=== PATIENT | male | born 1990 ===

== ENCOUNTER 2022-06-27 20:28 | Inpatient (IN) | payer MEDICAID ==
[2022-06-27] MEDS ORDERED: HALOPERIDOL LACTATE 5 MG/ML 1 ML VIAL IM PRN (21:01)
[2022-06-27] MEDS ORDERED: hydrOXYzine HCL 50 MG/ML 1 ML VIAL IM PRN (21:01)
[2022-06-27] MEDS ORDERED: LORazepam 2 MG/ML INJ IM PRN (21:01)
[2022-06-27] MEDS ORDERED: MAG HYDROX/AL HYDROX/SIMETH 30 ML CUP PO PRN (21:10)
[2022-06-27] MEDS ORDERED: MAGNESIUM HYDROXIDE 2,400 MG/10 ML CUP PO PRN (21:10)
[2022-06-28] MEDS: hydrOXYzine pamoate 25 MG CAP PO PRN ×2 (04:19→19:57)
[2022-06-28] MEDS: haloperidoL 5 MG TAB PO PRN ×2 (04:20→21:45)
--- NOTE | 2022-06-28 04:58 | P.PN ---
Progress Note - Text Progress Note Date: 06/28/22 patient refused evaluation
[2022-06-28] MEDS ORDERED: NICOTINE 14MG/24HR PATCH TRANSDERM SCH (09:00)
[2022-06-28] MEDS ORDERED: ARIPiprazole 10 MG TAB PO SCH (09:00)
[2022-06-28] MEDS: CHLORTHALIDONE 25 MG TAB PO SCH (09:12)
[2022-06-28] MEDS: lisinopriL 20 MG TAB PO SCH (09:12)
[2022-06-28] MEDS: LEVOTHYROXINE 100 MCG TAB PO SCH (09:13)
[2022-06-28] MEDS: FAMOTIDINE 20 MG TAB PO SCH (09:13)
[2022-06-28] MEDS: DIVALPROEX ER 500 MG TAB.ER.24H PO SCH ×2 (09:15→21:26)
[2022-06-28] MEDS ORDERED: NICOTINE GUM (POLACRILEX) 2 MG GUM BUCCAL PRN (09:22)
--- NOTE | 2022-06-28 13:30 | P.HP ---
Psychiatric H&P - . H&P Date: 06/28/22 History & Physical: Allergies Allergy/AdvReac Type Severity Reaction Status Date / Time No Known Allergies Allergy Verified 06/27/22 21:01 Vital Signs Temp 98 F 06/27/22 22:34 Pulse 105 H 06/27/22 22:34 Resp 18 06/27/22 22:34 BP 127/88 06/27/22 22:34 Pulse Ox 94 L 06/27/22 22:34 FiO2 Intake & Output 06/27/22 06/28/22 06/28/22 18:59 06:59 18:59 Weight 158.049 kg Laboratory Last Values Valproic Acid 32.0 ug/mL 06/28/22 11:44 06/28/22 13:22 IDENTIFYING DATA: Patient is a 32-year-old -Chinese male currently lives with his mother HPI: Patient presented to the hospital as a transfer from [facility] on a petition and certificate. Petition was held up by patient's mother who states the patient has been rambling, aggressive and not caring for himself at home. Patient was seen wandering the hallways was agreeable to speak to read in the office today. Patient appeared to have fairly poor insight and judgment and was fairly focused on discharge today. He was tangential and rambling at times and had disorganized speech. He was denying what had been written on the petition and did not see a need for him to be in the hospital. He was also minimizing his mental illness and need for treatment. He claims that "I am fine but I need your help". He claims that she was requesting discharge several times today. He states that he has nowhere to go, he was fairly vague and evasive. He states that his mother told him that "I need to go into the doctor". However did not explain what had occurred at home. Patient was talking under his breath several times, he states that he is not paranoid claims that his sleep and appetite are fair. He denies any depression this time however does state that he is feeling anxious. Patient denies any suicidal or homicidal ideations intent or plan. At this time patient denies any auditory or visual hallucinations. Patient denies any flight of ideas racing thoughts and increased in goal directed behavior. Patient admits to using cigarettes daily, alcohol occasionally and marijuana frequently. Denies any other recreational drug use. PAST PSYCHIATRIC HISTORY: Patient states that [he does not know what his psychiatric illnesses]. Patient is currently on Depakote twice a day, Abilify and also taking trazodone at nighttime. Patient states that he was previously admitted to [facility] outside of [place] and also [facility] the [facility], claims that he spent 4 years there starting in 2009. He states that it was because a "CSC" [Patient denies any psychiatric outpatient follow-up.] [Patient denies any history of suicide attempts in the past.] PMH: obesity, hypertension, gerd, hypothyroidism ALLERGIES: as per EMR CHEMICAL DEPENDENCY HISTORY: as per HPI FAMILY PSYCHIATRIC/SUBSTANCE USE HISTORY: [denies] SOCIAL HISTORY: Patient was born and raised in [[facility]. He claims that he completed high school and did special education courses. He states there is currently unemployed, he lives with his mother. He claims that he served time for a CSC charge]. MENTAL STATUS EXAM: General Appearance: Patient appears to be [obese,] stated age is alert, [directable, yet focused on discharge]. Impulsive and irritable at times. Patient appears to have [poor] hygiene and grooming. Behavior: Patient is seated without any agitated behavior. [] Irritable. Demanding. Speech: Patient's speech is [fluent and nonpressured.] [place]. Mood/Affect: Patient reports their mood is ["a bit anxious", affect is congruent and constricted. Suicidality/Homicidality: Patient denies having any homicidal ideation intent or plan. [Denies any suicidal ideations intent or plan] Perceptions: Patient denies any visual hallucinations [and denies any auditory hallucinations] Though content/process: [There is no evidence of any delusional thought content and thought process is linear and goal-directed.] Focused on discharge. Poor insight. Memory and concentration: AOX3, grossly intact for the purposes of this session. Can spell "WORLD" backwards Judgment and insight: [poor] STRENGTHS/WEAKNESSES: strength is that patient is [resilient]. Weakness is that patient [has poor judgment/insight and is impulsive] INTELLECT: [average] IMPRESSIONS: []Schizophrenia Cannabis use disorder Nicotine dependence PLAN: -Patient is admitted under [involuntary] status to MHU for stabilization of psychiatric symptoms and safety. Patient has [not] signed [adult voluntary form and] [medication consent] and is placed in patient's chart. [A second certification was completed and along with petition will be filed for court.] -Medications : Will start patient on [Depakote 500 mg twice a day for mood stabilization/aggression, increase Abilify to 15 mg daily for mood stabilization /psychosis, trazodone 100 mg qhs for insomnia] -vistaril, Ativan [and Haldol] PRN for agitation/aggression [-Patient was counselled on substance abuse and desired to cut back on use] -Patient was informed of the risks, benefits and side effects of the medication -Internal Medicine consult to perform medical evaluation and physical. -NRT - [nicotine gum] -SW on board for discharge planning. Encourage patient to participate in groups to work on coping skills. Will await deferral and court date.
[2022-06-28] MEDS: ACETAMINOPHEN TAB 325 MG TAB PO PRN (19:59)
[2022-06-28] MEDS ORDERED: DIVALPROEX ER 250 MG TAB.ER.24H PO SCH (21:00)
[2022-06-28] MEDS ORDERED: DIVALPROEX ER 500 MG TAB.ER.24H PO SCH (21:00)
[2022-06-28] MEDS: ATORVASTATIN 20 MG TAB PO SCH (21:26)
[2022-06-28] MEDS: DOXAZOSIN 4 MG TAB PO SCH (21:27)
[2022-06-28] MEDS: DILTIAZEM ORAL 30 MG TAB PO SCH (21:27)
[2022-06-28] MEDS: traZODone HCL 100 MG TAB PO SCH (21:27)
[2022-06-29] MEDS: hydrOXYzine pamoate 25 MG CAP PO PRN ×2 (02:36→08:39)
[2022-06-29] MEDS: LEVOTHYROXINE 100 MCG TAB PO SCH (06:29)
[2022-06-29] MEDS: ARIPiprazole 15 MG TAB PO SCH (08:36)
[2022-06-29] MEDS: DILTIAZEM ORAL 30 MG TAB PO SCH ×3 (08:36→21:31)
[2022-06-29] MEDS: FAMOTIDINE 20 MG TAB PO SCH (08:36)
[2022-06-29] MEDS: CHLORTHALIDONE 25 MG TAB PO SCH (08:36)
[2022-06-29] MEDS: lisinopriL 20 MG TAB PO SCH (08:36)
[2022-06-29] MEDS: haloperidoL 5 MG TAB PO PRN (08:39)
[2022-06-29] MEDS ORDERED: DIVALPROEX ER 500 MG TAB.ER.24H PO SCH (09:00)
--- NOTE | 2022-06-29 10:43 | P.PN ---
Progress Note - Text Progress Note Date: 06/29/22 Interval history: Patient was seen today for psychiatric follow up. Patient was seen laying on his bed today and was agreeable to speak to radio script writer briefly. He states that he is feeling "a bit tired" and states that he slept about 6 hours last night. He continues to be fairly focused on discharge has limited insight and judgment. He claims that "my medications are all messed up" however did not indicate if she is having side effects or any other complaints. He appeared to be more focused on sleeping at this time. He states that he will try to go to groups later on today. He appears to be less impulsive and less irritable today. Claims have a fair appetite. He asked that his "mom is here yet". He is denying any auditory or visual hallucinations. Denying any suicidal or homicidal ideations intent or plan. Mental status exam: General Appearance: Patient appears to be obese, stated age is alert, directable, yet focused on discharge. Impulsive, improving mildly. Patient appears to have poor hygiene and grooming. Behavior: Patient is seated without any agitated behavior. Less Irritable. Focused on discharge. Speech: Patient's speech is fluent and nonpressured. [place]. Mood/Affect: Patient reports their mood is ["ok i guess", affect is congruent and constricted. Suicidality/Homicidality: Patient denies having any homicidal ideation intent or plan. Denies any suicidal ideations intent or plan Perceptions: Patient denies any visual hallucinations and denies any auditory hallucinations Though content/process: There is no evidence of any delusional thought content and thought process is linear and goal-directed. Focused on discharge. Poor insight. Memory and concentration: AOX3, grossly intact for the purposes of this session Judgment and insight: poor, improving mildly IMPRESSIONS: Schizophrenia Cannabis use disorder Nicotine dependence PLAN: -Patient is admitted under involuntary status to MHU for stabilization of psychiatric symptoms and safety. Patient has not signed adult voluntary form and medication consent and is placed in patient's chart. -Medications : change Depakote 1000 mg qhs for mood stabilization/aggression, continue Abilify 15 mg daily for mood stabilization/psychosis, trazodone 100 mg qhs for insomnia -vistaril, Ativan and Haldol PRN for agitation/aggression -NRT - nicotine gum -SW on board for discharge planning. Encourage patient to participate in groups to work on coping skills. Court date set for 07/03, currently awaiting deferral with erisa attorney. Patient's mother states that patient has a outpatient appointment at [facility] on July 03.
[2022-06-29] MEDS: ACETAMINOPHEN TAB 325 MG TAB PO PRN (14:25)
[2022-06-29] MEDS: traZODone HCL 100 MG TAB PO SCH (21:31)
[2022-06-29] MEDS: DIVALPROEX ER 500 MG TAB.ER.24H PO SCH (21:31)
[2022-06-29] MEDS: ATORVASTATIN 20 MG TAB PO SCH (21:31)
[2022-06-29] MEDS: DOXAZOSIN 4 MG TAB PO SCH (21:31)
[2022-06-30] MEDS: LEVOTHYROXINE 100 MCG TAB PO SCH (06:35)
[2022-06-30] MEDS: DILTIAZEM ORAL 30 MG TAB PO SCH ×3 (08:52→19:56)
[2022-06-30] MEDS: CHLORTHALIDONE 25 MG TAB PO SCH (08:52)
[2022-06-30] MEDS: lisinopriL 20 MG TAB PO SCH (08:52)
[2022-06-30] MEDS: FAMOTIDINE 20 MG TAB PO SCH (08:52)
[2022-06-30] MEDS: ARIPiprazole 15 MG TAB PO SCH (08:52)
[2022-06-30] MEDS: haloperidoL 5 MG TAB PO PRN ×2 (09:02→16:06)
--- NOTE | 2022-06-30 11:31 | P.PN ---
Progress Note - Text Progress Note Date: 06/30/22 The patient was seen for a follow-up The patient was standing at the vendor facing out and was talking to himself Patient turnaround when his name was called but denies spontaneous or questions Patient refused to get involved in any conversation but continues to have his own conversation with himself Mental status exam: General Appearance: Patient appears to be obese, stated age is alert, unable to direct . Patient appears to have poor hygiene and grooming. Behavior: Patient standing the window without any agitated behavior. Less Irritable. Speech: Patient's speech is garbled and difficult to stay Mood/Affect: Unable to assess due to patient's uncooperativeness Suicidality/Homicidality: Unable to assess Perceptions: Unable to assess Though content/process: Appears to be delusional and preoccupied Memory and concentration: AOX3, grossly intact for the purposes of this session Judgment and insight: poor, IMPRESSIONS: Schizophrenia Cannabis use disorder Nicotine dependence PLAN: -Patient is admitted under involuntary status to MHU for stabilization of psychiatric symptoms and safety. Patient has not signed adult voluntary form and medication consent and is placed in patient's chart. -Medications : change Depakote 1000 mg qhs for mood stabilization/aggression, continue Abilify 15 mg daily for mood stabilization/psychosis, trazodone 100 mg qhs for insomnia -vistaril, Ativan and Haldol PRN for agitation/aggression -NRT - nicotine gum - on board for discharge planning. Encourage patient to participate in groups to work on coping skills. Court date set for 07/03, currently awaiting deferral with corporate associate attorney. Patient's mother states that patient has a outpatient aftab ointment at [facility] on July 03. Serjio Barnes M.D.
[2022-06-30] MEDS: ACETAMINOPHEN TAB 325 MG TAB PO PRN (12:43)
[2022-06-30] MEDS: hydrOXYzine pamoate 25 MG CAP PO PRN (13:35)
[2022-06-30] MEDS: DIVALPROEX ER 500 MG TAB.ER.24H PO SCH (19:55)
[2022-06-30] MEDS: ATORVASTATIN 20 MG TAB PO SCH (19:56)
[2022-06-30] MEDS: DOXAZOSIN 4 MG TAB PO SCH (19:56)
[2022-06-30] MEDS: traZODone HCL 100 MG TAB PO SCH (19:56)
[2022-07-01] MEDS: haloperidoL 5 MG TAB PO PRN ×2 (02:45→21:35)
[2022-07-01] MEDS: hydrOXYzine pamoate 25 MG CAP PO PRN ×3 (02:45→21:35)
[2022-07-01] MEDS: ACETAMINOPHEN TAB 325 MG TAB PO PRN ×2 (05:30→15:40)
[2022-07-01] MEDS: LEVOTHYROXINE 100 MCG TAB PO SCH (05:37)
[2022-07-01] MEDS: CHLORTHALIDONE 25 MG TAB PO SCH (09:42)
[2022-07-01] MEDS: DILTIAZEM ORAL 30 MG TAB PO SCH ×3 (09:43→21:35)
[2022-07-01] MEDS: FAMOTIDINE 20 MG TAB PO SCH (09:44)
[2022-07-01] MEDS: lisinopriL 20 MG TAB PO SCH (09:44)
[2022-07-01] MEDS: ARIPiprazole 15 MG TAB PO SCH (09:44)
--- NOTE | 2022-07-01 09:49 | P.PN ---
Progress Note - Text Progress Note Date: 07/01/22 The patient was tried to be seen for follow-up Patient however refused to acknowledge this ticket writer Remains preoccupied Patient refused to get involved in any conversation but continues to have his own conversation with himself Mental status exam: General Appearance: Patient appears to be obese, stated age is alert, unable to direct . Patient appears to have poor hygiene and grooming. Behavior: Patient standing the window without any agitated behavior. Less Irritable. Speech: Patient's speech is garbled and difficult to understand Mood/Affect: Unable to assess due to patient's uncooperativeness Suicidality/Homicidality: Unable to assess Perceptions: Unable to assess Though content/process: Appears to be delusional and preoccupied Memory and concentration: AOX3, grossly intact for the purposes of this session Judgment and insight: poor, IMPRESSIONS: Schizophrenia Cannabis use disorder Nicotine dependence PLAN: -Patient is admitted under involuntary status to MHU for stabilization of psychiatric symptoms and safety. Patient has not signed adult voluntary form and medication consent and is placed in patient's chart. -Medications : change Depakote 1000 mg qhs for mood stabilization/aggression, continue Abilify 15 mg daily for mood stabilization/psychosis, trazodone 100 mg qhs for insomnia -vistaril, Ativan and Haldol PRN for agitation/aggression -NRT - nicotine gum - on board for discharge planning. Encourage patient to participate in groups to work on coping skills. Court date set for 07/03, currently awaiting deferral with tool programmer. Patient's mother states that patient has a outpatient appointment at [facility] on July 03. Serjio Barnes M.D.
[2022-07-01] MEDS: traZODone HCL 100 MG TAB PO SCH (21:34)
[2022-07-01] MEDS: DIVALPROEX ER 500 MG TAB.ER.24H PO SCH (21:34)
[2022-07-01] MEDS: ATORVASTATIN 20 MG TAB PO SCH (21:34)
[2022-07-01] MEDS: DOXAZOSIN 4 MG TAB PO SCH (21:35)
[2022-07-02] MEDS: hydrOXYzine pamoate 25 MG CAP PO PRN ×2 (02:47→11:06)
[2022-07-02] MEDS: LEVOTHYROXINE 100 MCG TAB PO SCH (06:44)
[2022-07-02] MEDS: DILTIAZEM ORAL 30 MG TAB PO SCH ×3 (09:18→21:12)
[2022-07-02] MEDS: ARIPiprazole 15 MG TAB PO SCH (09:18)
[2022-07-02] MEDS: lisinopriL 20 MG TAB PO SCH (09:18)
[2022-07-02] MEDS: CHLORTHALIDONE 25 MG TAB PO SCH (09:19)
[2022-07-02] MEDS: FAMOTIDINE 20 MG TAB PO SCH (09:19)
--- NOTE | 2022-07-02 11:40 | P.PN ---
Progress Note - Text Progress Note Date: 07/02/22 Interval history: Patient was seen today for psychiatric follow up. Patient was seen laying on his bed today. He was sleeping and was agreeable to speak to scientific technical writer when he woke up. She appeared to have improvement in his impulsivity however over the weekend patient was bizarre, inappropriate and agitated at times. Patient required Haldol prn yesterday. Patient claims that he is not sleeping well and has been noted to be talking oneself and responding to internal stimuli at times. Patient claims that he feels "all right" and appears to have very poor insight and judgment. He claims that he slept fairly last night. He states that he has a fair appetite. He continues to be focused on being discharged to his mother. He has not been going to many groups. [place] on discharge. He appears to be less impulsive and less irritable today. Claims have a fair appetite. We spoke more about the court process. He is denying any auditory or visual hallucinations. Denying any suicidal or homicidal ideations intent or plan. Mental status exam: General Appearance: Patient appears to be obese, stated age is alert, directable, yet focused on discharge. Impulsive, bizarre at times. Patient appears to have poor hygiene and grooming. Behavior: Patient is seated without any agitated behavior. Bizarre. Focused on discharge. Speech: Patient's speech is fluent and nonpressured. [place]. Mood/Affect: Patient reports their mood is ["ok", affect is congruent and constricted. Suicidality/Homicidality: Patient denies having any homicidal ideation intent or plan. Denies any suicidal ideations intent or plan Perceptions: Patient denies any visual hallucinations and denies any auditory hallucinations Though content/process: There is no evidence of any delusional thought content and thought process is linear and goal-directed. Focused on discharge. Poor insight. Memory and concentration: AOX3, grossly intact for the purposes of this session Judgment and insight: poor IMPRESSIONS: Schizophrenia Cannabis use disorder Nicotine dependence PLAN: -Patient is admitted under involuntary status to MHU for stabilization of psychiatric symptoms and safety. Patient has not signed adult voluntary form and medication consent and is placed in patient's chart. -Medications : Depakote 1000 mg qhs for mood stabilization/aggression, discontinue Abilify and replace with paliperidone by mouth 3 mg twice a day for mood stabilization/psychosis. Plan will be to transition patient to long-acting injection to ensure compliance. trazodone 100 mg qhs for insomnia -vistaril, Ativan and Haldol PRN for agitation/aggression -NRT - nicotine gum -SW on board for discharge planning. Encourage patient to participate in groups to work on coping skills. Court date set for 07/03, currently awaiting deferral with chief communications officer. Patient is apparently not allowed back at mother's house and will be homeless. poss d/c in 2-3 days.
[2022-07-02] MEDS: PALIPERIDONE 3 MG TAB.ER.24 PO SCH ×2 (13:09→21:12)
[2022-07-02] MEDS: ATORVASTATIN 20 MG TAB PO SCH (21:11)
[2022-07-02] MEDS: DIVALPROEX ER 500 MG TAB.ER.24H PO SCH (21:11)
[2022-07-02] MEDS: traZODone HCL 100 MG TAB PO SCH (21:12)
[2022-07-02] MEDS: DOXAZOSIN 4 MG TAB PO SCH (21:12)
[2022-07-03] MEDS: haloperidoL 5 MG TAB PO PRN ×2 (00:12→20:59)
--- NOTE | 2022-07-03 01:46 | P.CONS ---
History of Present Illness - Reason for Consult Consult date: 07/03/22 - History of Present Illness The patient is a 32-year-old male was transferred from a clinical with the patient was brought by his mother due to strange and aggressive behavior. The patient was seen in the mental health unit. The patient reported that he feels significantly better and that he had no active complaints. He reports living with his mother in [place]. Smokes 10 cigarettes a day. Denied illicit substance use or alcohol use. Denies any active complaints at the time of interview. Denied experiencing chest discomfort, shortness of breath fever, chills, cough, nausea, vomiting, abdominal pain, diarrhea. Review of systems: Pertinent positives and negatives as discussed in HPI, a complete review of systems was performed and all other systems are negative. Physical examination: General: non toxic, no distress, appears older than stated age, morbidly obese Derm: no unusual rashes/lesions, no unusual ecchymoses, warm, dry Head: atraumatic, normocephalic, symmetric Eyes: EOMI, no lid lag, anicteric sclera ENT: Nose and ears atraumatic, no thrush, no pharyngeal erythema Neck: trachea midline, supple Mouth: no lip lesion, mucus membranes moist Cardiovascular: S1S2 reg, no murmur, no edema Lungs: CTA bilateral, no rhonchi, no rales , no accessory muscle use Abdominal: soft, nontender to palpation, no guarding Ext: no gross muscle atrophy, no contractures, Neuro: No gross focal neuro deficits noted Psych: Alert, oriented, appropriate affect Assessment: Prediabetes Psychosis Imaging: None performed Data Review: Laboratory evaluation reviewed with hemoglobin 6.4, TSH 2.05 Plan: Discussed with patient importance of weight loss and dietary changes. Advised patient to follow-up with his PCP following discharge Defer management of psychosis to primary psychiatry service Thank you for allowing us to participate in the care of this patient. We will follow peripherally. Do not hesitate to contact us with questions. Someone can be reached from the [facility] hospitalist group at all hours of the day at [phone]. Past Medical History History of Any Multi-Drug Resistant Organisms: None Reported Additional Past Surgical History / Comment(s): gastric bypass Past Anesthesia/Blood Transfusion Reactions: No Reported Reaction Past Psychological History: Unable to Obtain Smoking Status: Current every day smoker, Vaper - Past Family History Mother Family Medical History: Diabetes Mellitus Medications and Allergies Allergies Allergy/AdvReac Type Severity Reaction Status Date / Time No Known Allergies Allergy Verified 06/27/22 21:01 Physical Exam Vitals: Vital Signs Temp Pulse Resp BP Pulse Ox 07/03/22 01:06 97.6 F 114 H 18 133/86 96 07/02/22 02:48 97.8 F 118 H 16 139/78 97
[2022-07-03] MEDS: ACETAMINOPHEN TAB 325 MG TAB PO PRN ×2 (02:05→15:29)
[2022-07-03] MEDS: DILTIAZEM ORAL 30 MG TAB PO SCH ×3 (07:51→20:36)
[2022-07-03] MEDS: PALIPERIDONE 3 MG TAB.ER.24 PO SCH (07:52)
[2022-07-03] MEDS: CHLORTHALIDONE 25 MG TAB PO SCH (07:52)
[2022-07-03] MEDS: LEVOTHYROXINE 100 MCG TAB PO SCH (07:53)
[2022-07-03] MEDS: lisinopriL 20 MG TAB PO SCH (07:53)
[2022-07-03] MEDS: FAMOTIDINE 20 MG TAB PO SCH (07:53)
--- NOTE | 2022-07-03 10:31 | P.PN ---
Progress Note - Text Progress Note Date: 07/03/22 Interval history: Patient was seen today for psychiatric follow up. patient was fairly persistent in speakign with fha underwriter today. he has a foul body odor today. he was fairlyu directable and attempted to answer questions. he states that he is feeling better today however continues to focus on going to his mothers house. he conitnues to display poor/superficial insight and judgment. Patient required Haldol prn earlier this morning and patient stated that "I dont know she just wanted to give it to me". appears to have very poor insight and judgment. He states that he has a fair appetite. He appears to be less impulsive and less irritable today. Claims have a fair appetite. We spoke more about the court process. He is denying any auditory or visual hallucinations. Denying any suicidal or homicidal ideations intent or plan. Mental status exam: General Appearance: Patient appears to be obese, stated age is alert, directable, yet focused on discharge. Impulsive, bizarre at times. Patient appears to have poor hygiene and grooming. Behavior: Patient is seated without any agitated behavior. Bizarre. Focused on discharge. Speech: Patient's speech is fluent and nonpressured. [place]. Mood/Affect: Patient reports their mood is ["fine now", affect is congruent and constricted. Suicidality/Homicidality: Patient denies having any homicidal ideation intent or plan. Denies any suicidal ideations intent or plan Perceptions: Patient denies any visual hallucinations and denies any auditory hallucinations Though content/process: There is no evidence of any delusional thought content and thought process is linear. Focused on discharge. Poor insight. Memory and concentration: AOX3, grossly intact for the purposes of this session Judgment and insight: poor IMPRESSIONS: Schizophrenia Cannabis use disorder Nicotine dependence PLAN: -Patient is admitted under involuntary status to MHU for stabilization of psychiatric symptoms and safety. Patient has not signed adult voluntary form and medication consent and is placed in patient's chart. -Medications : Depakote 1000 mg qhs for mood stabilization/aggression, increase paliperidone by mouth 3 mg + 6 mg qhs for mood stabilization/psychosis. Plan will be to transition patient to long-acting injection to ensure compliance. increase trazodone 150 mg qhs for insomnia -vistaril, Ativan and Haldol PRN for agitation/aggression -NRT - nicotine gum -SW on board for discharge planning. Encourage patient to participate in groups to work on coping skills. Court date set for 07/04, he did not defer. Patient is apparently not allowed back at mother's house and will be homeless. poss d/c in 2-3 days once patient is transitioned onto WOOD.
[2022-07-03] MEDS: DIVALPROEX ER 500 MG TAB.ER.24H PO SCH (20:35)
[2022-07-03] MEDS: ATORVASTATIN 20 MG TAB PO SCH (20:35)
[2022-07-03] MEDS: DOXAZOSIN 4 MG TAB PO SCH (20:35)
[2022-07-03] MEDS: PALIPERIDONE 6 MG TAB.ER.24 PO SCH (20:35)
[2022-07-03] MEDS: hydrOXYzine pamoate 25 MG CAP PO PRN (20:59)
[2022-07-03] MEDS ORDERED: traZODone HCL 50 MG TAB PO SCH (21:00)
[2022-07-04] MEDS: LEVOTHYROXINE 100 MCG TAB PO SCH (05:36)
[2022-07-04] MEDS: FAMOTIDINE 20 MG TAB PO SCH (08:39)
[2022-07-04] MEDS: lisinopriL 20 MG TAB PO SCH (08:39)
[2022-07-04] MEDS: DILTIAZEM ORAL 30 MG TAB PO SCH ×3 (08:39→21:07)
[2022-07-04] MEDS: PALIPERIDONE 3 MG TAB.ER.24 PO SCH (08:39)
[2022-07-04] MEDS: CHLORTHALIDONE 25 MG TAB PO SCH (08:39)
[2022-07-04] MEDS ORDERED: PALIPERIDONE IM 234 MG/1.5 ML SYG IM STA (09:33)
--- NOTE | 2022-07-04 11:26 | P.PN ---
Progress Note - Text Progress Note Date: 07/04/22 Interval history: Patient was seen today for psychiatric follow up. Patient again was fairly pe rsistent and speaking with typewriter repairer early this morning. He appears to have mild improvement in his hygiene and grooming. He appears to be more appropriate and cooperative today during interview. He states that he is doing "alright" continues to be fairly concrete. He was fairly focused on discharge. We spoke about the long-acting injection which patient is agreeable to take today. He continues to believe that he will be going to his mother's house and states that his mother is okay with it. daycare worker will be calling her today to see if that a possibility.appears to have chronically poor however improving insight and judgment. He states that he has a fair appetite. He appears to be less impulsive. Claims have a fair appetite. We spoke more about the court process. He is denying any auditory or visual hallucinations. Denying any suicidal or homicidal ideations intent or plan. Claims that he slept on and off last night. Mental status exam: General Appearance: Patient appears to be obese, stated age is alert, directable, yet focused on discharge. Impulsive, bizarre at times. Patient appears to have poor hygiene and grooming. Behavior: Patient is seated without any agitated behavior. Bizarre. Focused on discharge. Speech: Patient's speech is fluent and nonpressured. [place]. Mood/Affect: Patient reports their mood is ["fine now", affect is congruent and constricted. Suicidality/Homicidality: Patient denies having any homicidal ideation intent or plan. Denies any suicidal ideations intent or plan Perceptions: Patient denies any visual hallucinations and denies any auditory hallucinations Though content/process: There is no evidence of any delusional thought content and thought process is linear. Focused on discharge. Poor insight. Memory and concentration: AOX3, grossly intact for the purposes of this session Judgment and insight: poor IMPRESSIONS: Schizophrenia Cannabis use disorder Nicotine dependence PLAN: -Patient is admitted under involuntary status to MHU for stabilization of psychiatric symptoms and safety. Patient has not signed adult voluntary form and medication consent and is placed in patient's chart. -Medications : Depakote 1000 mg qhs for mood stabilization/aggression, continue paliperidone by mouth 3 mg + 6 mg qhs for mood stabilization/psychosis. Plan to give long-acting injection to ensure compliance today, 234 mg IM invega sustenna. increase trazodone 200 mg qhs for insomnia -vistaril, Ativan and Haldol PRN for agitation/aggression -NRT - nicotine gum -SW on board for discharge planning. Encourage patient to participate in groups to work on coping skills. Court date set for 07/04, patient apparently has deferred with gifted teacher now. poss d/c tomorrow after transition onto WOOD, SW to speak with mother to see if he can live there vs custodial with [facility] follow up.
[2022-07-04] MEDS: ACETAMINOPHEN TAB 325 MG TAB PO PRN ×3 (13:03→21:10)
[2022-07-04] MEDS ORDERED: traZODone HCL 100 MG TAB PO SCH (21:00)
[2022-07-04] MEDS: PALIPERIDONE 6 MG TAB.ER.24 PO SCH (21:07)
[2022-07-04] MEDS: DIVALPROEX ER 500 MG TAB.ER.24H PO SCH (21:07)
[2022-07-04] MEDS: DOXAZOSIN 4 MG TAB PO SCH (21:07)
[2022-07-04] MEDS: ATORVASTATIN 20 MG TAB PO SCH (21:08)
[2022-07-04] MEDS: hydrOXYzine pamoate 25 MG CAP PO PRN (22:38)
[2022-07-05] MEDS: LEVOTHYROXINE 100 MCG TAB PO SCH (04:26)
[2022-07-05 07:11] VITALS: BP 124/83; PULSE 114; RESP 20; TEMP 97.7
[2022-07-05] MEDS: FAMOTIDINE 20 MG TAB PO SCH (09:23)
[2022-07-05] MEDS: lisinopriL 20 MG TAB PO SCH (09:23)
[2022-07-05] MEDS: PALIPERIDONE 3 MG TAB.ER.24 PO SCH (09:23)
[2022-07-05] MEDS: DILTIAZEM ORAL 30 MG TAB PO SCH (09:23)
[2022-07-05] MEDS: DOXAZOSIN 4 MG TAB PO SCH (09:23)
[2022-07-05] MEDS: CHLORTHALIDONE 25 MG TAB PO SCH (09:23)
--- NOTE | 2022-07-05 10:05 | P.DS ---
Providers Date of admission: 06/27/22 21:58 Expected date of discharge: 07/05/22 Attending physician: Girish Barr MD Consults: 06/27/22 21:10 Consult Physician Routine Consulting Provider: Scooter Physician Consult Reason/Comments: h&p Do you want consulting provider notified?: Yes Primary care physician: Miguel Correa - Discharge Diagnosis(es) (1) Schizophrenia Current Visit: Yes Status: Acute Priority: High (2) Cannabis use disorder Current Visit: Yes Status: Acute Priority: Medium (3) Nicotine dependence Current Visit: Yes Status: Acute Priority: Low Hospital Course: Admission HPI: Admission note was completed by chief writer "Patient is a 32-year-old -Amer ican male currently lives with his mother. Patient presented to the hospital as a transfer from [facility] on a petition and certificate. Petition was held up by patient's mother who states the patient has been rambling, aggressive and not caring for himself at home. Patient was seen wandering the hallways was agreeable to speak to read in the office today. Patient appeared to have fairly poor insight and judgment and was fairly focused on discharge today. He was tangential and rambling at times and had disorganized speech. He was denying what had been written on the petition and did not see a need for him to be in the hospital. He was also minimizing his mental illness and need for treatment. He claims that "I am fine but I need your help". He claims that she was requesting discharge several times today. He states that he has nowhere to go, he was fairly vague and evasive. He states that his mother told him that "I need to go into the doctor". However did not explain what had occurred at home. Patient was talking under his breath several times, he states that he is not paranoid claims that his sleep and appetite are fair. He denies any depression this time however does state that he is feeling anxious. Patient denies any suicidal or homicidal ideations intent or plan. At this time patient denies any auditory or visual hallucinations. Patient denies any flight of ideas racing thoughts and increased in goal directed behavior. Patient admits to using cigarettes daily, alcohol occasionally and marijuana frequently. Denies any other recreational drug use." Hospital course: Upon admission to the unit patient was admitted involuntarily on a petition and certificate and a second certificate was completed and faxed with the courts. Patient ended up signing a deferral with the tie carrier and agreeing to treatment. Patient got along well with other patients on the unit and followed unit protocol. Patient was compliant with the medications and denied any side effects throughout hospital course. Patient was started on paliperidone by mouth at increase to a dose of 9 mg total during the day for psychosis/mood stabilization, restarted on Depakote 1000 mg daily at bedtime for mood stabilization/aggression, trazodone 200 mg daily at bedtime for insomnia and Vistaril when necessary for anxiety. Patient was transitioned onto Invega Sustenna and given loading dose of 234 mg IM on 07/04 and will be due for his next dose of 156 mg IM on 07/11 and monthly maintenance dose of 156 mg IM on 08/01. Patient spoke of his stressors and engaged in therapy both group and individual. Patient was also seen by medical team for history and physical exam. Throughout the course of the hospitalization patient gradually improved with regards to mood, anxiety, psychosis/aggression, sleep and returned back to their baseline level of functioning. On the day of discharge patient denied any suicidal or homicidal ideations intent or plan denied any auditory or visual hallucinations. Patient endorsed wanting to live for his health and family. The patient denied any access to guns or weapons. Patient denied any paranoia and did not endorse any delusions. Patient does have a significant history of substance abuse and was counseled on abstaining from all substances including alcohol and marijuana. Patient elected to do outpatient substance use treatment program through [facility]. Patient was also counseled on the medications and need for regular compliance and was encouraged to follow-up with their outpatient appointment for mental health and also for primary care. Prior to discharge a family meeting will be arranged by social work associate to answer any questions and ensure safety upon discharge. Mother will be seeking to file gaurdianship. [facility]. Mental status exam: General Appearance: Patient appears to be overweight, stated age is alert, pleasant, and cooperative. Patient is in no acute distress and has improved hygiene and grooming Behavior: Patient is calmly seated without any agitated behavior. Speech: Patient's speech is fluent and nonpressured. Mood/Affect: Patient reports their mood is "good", affect is congruent Suicidality/Homicidality: Patient denies having any suicidal or homicidal ideation intent or plan. Perceptions: Patient denies any auditory or visual hallucinations. Though content/process: There is no evidence of any delusional thought content and thought process is linear and goal-directed. Memory and concentration: AOX3, grossly intact for the purposes of this session. Can spell "WORLD" backwards correctly. Judgment and insight: improved with guarded prognosis Impression: Schizophrenia Cannabis use disorder Nicotine dependence Plan: -Continue with discharge today as patient has improved and stabilized psychiatrically and is not currently an imminent threat to himself and/or others. Patient will remain at chronically elevated risk for harm to self and/or others due to his impulsivity and substance abuse. -Continue medications: Invega po 3 mg daily for 4 more days then discontinue. Patient was given Invega Sustenna 234 mg IM on 07/04, next dose due of 156 mg IM on 07/11, monthly maintenance dose will be due of 156 mg IM on 08/01. Continue with Depakote 1000 mg daily at bedtime for mood stabilization/aggression, trazodone 200 mg daily at bedtime for insomnia/mood, Vistaril 50 mg daily when necessary for anxiety. -Patient was counseled on the need for medication compliance and appropriate follow-up at mental health and also primary care for medical issues. Patient verbalized understanding and agreed. -Social work to arrange for and conduct family meeting to ensure safety upon discharge and answer any questions/concerns. Social work also to arrange for patients follow up appointments with [facility] in [facility] for psychiatric care along with follow up with primary care provider. -Patient counseled on abstaining from recreational drugs and marijuana and alcohol. Was informed/educated on the adverse effects on their physical and mental health. Patient verbally agreed and understood. -Patient was instructed to return to the hospital or seek immediate medical care if their psychiatric or medical symptoms do worsen or reoccur. Allergies Allergy/AdvReac Type Severity Reaction Status Date / Time No Known Allergies Allergy Verified 06/27/22 21:[address] Glu mg/dL 137 07/01/22 15:20 Hemoglobin A1c 6.4 % (0.0-6.0) H 07/01/22 15:20 TSH 2.050 mIU/L (0.465-4.680) 07/01/22 15:20 Valproic Acid 32.0 ug/mL 06/28/22 11:44 Vital Signs Temp 97.7 F 07/05/22 07:10 Pulse 114 H 07/05/22 07:10 Resp 20 07/05/22 07:10 BP 124/83 07/05/22 07:10 Pulse Ox 97 07/05/22 07:10 FiO2 Patient Condition at Discharge: Stable Plan - Discharge Summary Discharge Rx Participant: Yes New Discharge Prescriptions: New Diltiazem Oral [Cardizem*] 30 mg PO TID 30 Days #90 tab Doxazosin [Cardura] 4 mg PO HS 30 Days #30 tab Divalproex ER [Depakote ER] 1,000 mg PO HS 30 Days #60 tab Chlorthalidone [Hygroton] 12.5 mg PO DAILY 30 Days #15 tab Paliperidone [Invega] 3 mg PO DAILY 4 Days #4 tab Paliperidone IM [Invega Sustenna] 156 mg IM ONCE #1 ml Paliperidone IM [Invega Sustenna] 156 mg IM QMONTHLY #1 each Atorvastatin [Lipitor] 20 mg PO HS 30 Days #30 tab Nicotine Gum (Polacrilex) [Nicorette] 2 mg BUCCAL Q4HR PRN pieceofgum PRN Reason: Nicotine Cravings hydrOXYzine pamoate [Vistaril] 50 mg PO DAILY PRN 14 Days #28 cap PRN Reason: Anxiety traZODone HCL [Desyrel] 200 mg PO HS 30 Days #60 tab Famotidine [Pepcid] 20 mg PO DAILY 30 Days #30 tab Levothyroxine Sodium [Synthroid] 100 mcg PO DAILY@30 30 Days #30 tab Acetaminophen Tab [Tylenol] 650 mg PO Q4HR PRN tab PRN Reason: Pain/Discomfort lisinopriL [Zestril] 20 mg PO DAILY 30 Days #30 tab Discharge Medication List Acetaminophen Tab [Tylenol] 650 mg PO Q4HR PRN tab 07/05/22 [Rx] Atorvastatin [Lipitor] 20 mg PO HS 30 Days #30 tab 07/05/22 [Rx] Chlorthalidone [Hygroton] 12.5 mg PO DAILY 30 Days #15 tab 07/05/22 [Rx] Diltiazem Oral [Cardizem*] 30 mg PO TID 30 Days #90 tab 07/05/22 [Rx] Divalproex ER [Depakote ER] 1,000 mg PO HS 30 Days #60 tab 07/05/22 [Rx] Doxazosin [Cardura] 4 mg PO HS 30 Days #30 tab 07/05/22 [Rx] Famotidine [Pepcid] 20 mg PO DAILY 30 Days #30 tab 07/05/22 [Rx] Levothyroxine Sodium [Synthroid] 100 mcg PO DAILY@0630 30 Days #30 tab 07/05/22 [Rx] Nicotine Gum (Polacrilex) [Nicorette] 2 mg BUCCAL Q4HR PRN pieceofgum 07/05/22 [Rx] Paliperidone IM [Invega Sustenna] 156 mg IM ONCE #1 ml 07/05/22 [Rx] Paliperidone IM [Invega Sustenna] 156 mg IM QMONTHLY #1 each 07/05/22 [Rx] Paliperidone [Invega] 3 mg PO DAILY 4 Days #4 tab 07/05/22 [Rx] hydrOXYzine pamoate [Vistaril] 50 mg PO DAILY PRN 14 Days #28 cap 07/05/22 [Rx] lisinopriL [Zestril] 20 mg PO DAILY 30 Days #30 tab 07/05/22 [Rx] traZODone HCL [Desyrel] 200 mg PO HS 30 Days #60 tab 07/05/22 [Rx] Activity/Diet/Wound Care/Special Instructions: Avoid the use of street drugs and alcohol. Take all medications as prescribed. When you are in need of refills on your medications, please contact your medical provider and/or outpatient psychiatrist to have this done. Please go to scheduled outpatient appointments for aftercare treatment. If symptoms return or become worse, call the crisis line at and/or go to the nearest emergency room for evaluation. Discharge Disposition: OTHER INSTITUTION NOT DEFINED
[2022-07-05] MEDS: ACETAMINOPHEN TAB 325 MG TAB PO PRN (14:04)
== END 2022-07-05 14:17 | disposition home or self-care (01) | DRG 750 ==
LOC: 3MHU 21:58
PROVIDERS: ADMIT Psychiatry & Neurology Psychiatry; ATTEND Psychiatry & Neurology Psychiatry
DX: F20.9 Schizophrenia, unspecified (principal); Z68.43 Body mass index [BMI] 50.0-59.9, adult; E66.01 Morbid (severe) obesity due to excess calories; F12.10 Cannabis abuse, uncomplicated; E03.9 Hypothyroidism, unspecified; F41.9 Anxiety disorder, unspecified; G47.00 Insomnia, unspecified; I10 Essential (primary) hypertension; R73.03 Prediabetes; K21.9 Gastro-esophageal reflux disease without esophagitis; F17.210 Nicotine dependence, cigarettes, uncomplicated; F17.290 Nicotine dependence, other tobacco product, uncomplicated; Z71.6 Tobacco abuse counseling; Z56.0 Unemployment, unspecified; Z98.84 Bariatric surgery status; Z59.00 Homelessness unspecified; Z71.51 Drug abuse counseling and surveillance of drug abuser; Z71.41 Alcohol abuse counseling and surveillance of alcoholic
CPT/HCPCS: 80164; 83036; 84443